=== PATIENT | female | born 1975 | race African-American/Black ===

== ENCOUNTER 2020-04-18 11:23 | Emergency (ER) | payer OTHER ==
[~2020-04-18] VITALS: Ht 152.4 cm; Wt 80.7 kg
[2020-04-18] MEDS ORDERED: CELEXA 10 MG TA10 M1 PO (11:43)
[2020-04-18] MEDS ORDERED: PREDNISONE 20 M20 MG PO (12:06)
[2020-04-18] MEDS ORDERED: DOXYCYCLINE 10100 MG PO (12:06)
[2020-04-18 12:14] VITALS: BP 123/95
== END 2020-04-18 12:14 | disposition home or self-care (01) ==
LOC: ER 11:23
DX: S70.362A Insect bite (nonvenomous), left thigh, initial encounter (principal); L03.116 Cellulitis of left lower limb; F17.210 Nicotine dependence, cigarettes, uncomplicated; Z79.899 Other long term (current) drug therapy; Z88.5 Allergy status to narcotic agent; W57.XXXA Bitten or stung by nonvenomous insect and other nonvenomous arthropods, initial encounter; Y93.89 Activity, other specified; Y92.89 Other specified places as the place of occurrence of the external cause; Y99.9 Unspecified external cause status